=== PATIENT | male | born 1985 | race Caucasian/White ===

== ENCOUNTER 2021-02-13 13:58 | Emergency (ER) | payer OTHER ==
[~2021-02-13 13:58] MED LIST: MOTRIN600 MG PO; NORCO 5-325 TA1 EACH PO
[2021-02-13] MEDS ORDERED: NORCO 5-325 TA1 EACH PO (14:39)
[2021-02-23] MEDS ORDERED: PERCOCET 5-3251 EACH PO (08:59)
== END 2021-02-13 15:40 | disposition home or self-care (01) ==
LOC: FER 13:58
DX: S52.502A Unspecified fracture of the lower end of left radius, initial encounter for closed fracture (principal); F17.200 Nicotine dependence, unspecified, uncomplicated; W19.XXXA Unspecified fall, initial encounter; Y92.511 Restaurant or cafe as the place of occurrence of the external cause
CPT/HCPCS: 73110

== ENCOUNTER → 2021-02-23 | Day surgery (SDC) | payer OTHER ==
[~2021-02-23] MED LIST changes: +PERCOCET 5-3251 EACH PO
[2021-02-23 08:58] LABS: HCT 40.4 % (42.0-52.0); HGB 14.4 g/dl (13.2-18.0); MCH 32.9 pg (25.0-31.0); MCHC 35.6 g/dL (32.0-36.0); MCV 92.2 fL (78.0-100.0); MPV 10.8 fL (6.0-9.5); RBC 4.38 M/uL (4.70-6.00); RDW 11.4 % (11.5-14.0); WBC 7.3 K/uL (4.0-10.5)
[2021-02-23 09:16] LABS: BILIRUBIN - TOTAL 1.1 mg/dL (0.2-1.0); BUN/CREAT RATIO (CALC) 14.9 RATIO; CREATININE 1.01 mg/dL (0.67-1.17); GLOBULIN (CALCULATION) 2.9 g/dL; POTASSIUM 3.8 mmol/L (3.5-5.1); TOTAL PROTEIN 6.9 g/dL (6.4-8.2)
== END | disposition home or self-care (01) ==
LOC: FAS 07:44
PROVIDERS: Orthopaedic Surgery
DX: S52.572A Other intraarticular fracture of lower end of left radius, initial encounter for closed fracture (principal); K21.9 Gastro-esophageal reflux disease without esophagitis; X58.XXXA Exposure to other specified factors, initial encounter
CPT/HCPCS: 36415; 73100; 76000; 80053; C1713; C1769; J0690; J1100; J1170; J1885; J2250; J2405; J2704; J2795; J7120

== ENCOUNTER 2021-03-27 11:57 | Emergency (ER) | payer OTHER | END 2021-03-27 15:19 | disposition home or self-care (01) | LOC: FER 11:57 | DX: S60.212A Contusion of left wrist, initial encounter (principal); X58.XXXA Exposure to other specified factors, initial encounter; Y92.410 Unspecified street and highway as the place of occurrence of the external cause; Z87.828 Personal history of other (healed) physical injury and trauma | CPT/HCPCS: 73110 ==

== ENCOUNTER 2021-12-26 12:47 | Emergency (ER) | payer OTHER | END 2021-12-26 14:28 | disposition left against medical advice (07) | LOC: FER 12:47 | DX: M79.601 Pain in right arm (principal); Z53.29 Procedure and treatment not carried out because of patient's decision for other reasons | CPT/HCPCS: 99283 ==

== ENCOUNTER 2021-12-27 07:01 | Emergency (ER) | payer OTHER | END 2021-12-27 09:25 | disposition left against medical advice (07) | LOC: FER 07:01 | DX: G43.909 Migraine, unspecified, not intractable, without status migrainosus (principal) | CPT/HCPCS: 99283; J1885 ==